=== PATIENT | female | born 1980 | race Caucasian/White ===

== ENCOUNTER 2017-01-12 05:13 | Emergency (ER) | payer BC, OTHER ==
[2017-01-12 06:00] LABS: HEMOGLOBIN 13.1 gm/dl (12.3-15.3); RED BLOOD COUNT 4.11 M/UL (4.00-5.10); WHITE BLOOD COUNT 8.2 K/UL (4.5-11.0)
[2017-01-12 06:18] LABS: BUN/CREATININE RATIO 12 (0-10)
[2017-08-06] MEDS ORDERED: COLACE 100MG C100 MG PO (14:09)
== END 2017-01-12 08:35 | disposition home or self-care (01) ==
LOC: ER1 05:13
PROVIDERS: Student in an Organized Health Care Education/Training Program
DX: O20.0 Threatened abortion (principal); Z3A.10 10 weeks gestation of pregnancy
CPT/HCPCS: 36415; 76817; 80053; 81001; 84702; 85025; 87086; 99284

== ENCOUNTER → 2021-03-27 | Outpatient (CLI) | payer BC, OTHER ==
[~2021-03-27] MED LIST: COLACE 100MG C100 MG PO; DECADRON6 MG PO; TORADOL 10 MG T10 MG PO; ZOFRAN ODT 4 MG4 MG SL
== END ==
LOC: KOH-I 08:09
DX: M25.571 Pain in right ankle and joints of right foot (principal)
CPT/HCPCS: 73610

== ENCOUNTER 2021-05-14 13:30 | Emergency (ER) | payer BC, OTHER ==
[~2021-05-14 13:30] MED LIST changes: -DECADRON6 MG PO
[2021-05-14] MEDS ORDERED: DECADRON6 MG PO (14:30)
== END 2021-05-14 15:05 | disposition home or self-care (01) ==
LOC: ER1 13:30
DX: T63.441A Toxic effect of venom of bees, accidental (unintentional), initial encounter (principal)
CPT/HCPCS: 99282